=== PATIENT | female | born 2000 | race African-American/Black ===

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

== ENCOUNTER 2020-06-04 14:29 | Emergency (ER) | payer MEDICAID ==
--- NOTE | 2020-06-04 15:54 | ER Document Report ---
ED Medical Screen (RME) - General Chief Complaint: Vaginal Bleeding Stated Complaint: VAGINAL BLEEDING Time Seen by Provider: 06/04/20 15:50 Primary Care Provider: INDU MCCLURE MD [Primary Care Provider] - Follow up as needed Mode of Arrival: Ambulatory Information source: Patient Notes: HPI; 19-year-old female presents to the emergency room complaining of vaginal bleeding with clots for the past 3 days. Unsure if she is . LMP 05/03. No previous pregnancies. Sexually active no use of control. Negative home test 3 weeks ago. PE: Alert and oriented x3. Mild distress noted. Lungs: Clear to auscultation without rales, rhonchi, wheezes. Heart: Regular rate rhythm without murmurs, rubs, gallops. Unable to do full exam in triage. I have greeted and performed a rapid initial assessment of this patient. A comprehensive ED assessment and evaluation of the patient, analysis of test results and completion of the medical decision making process will be conducted by additional ED providers. I have specifically instructed the patient or family members with the patient to immediately return to any nursing staff should anything change in the patient's condition or with their chief complaint. TRAVEL OUTSIDE OF THE [place] IN LAST 30 DAYS: No - Related Data Allergies/Adverse Reactions: No Known Allergies Allergy (Verified 06/04/20 15:39) Home Medications: denies Past Medical History - Social History Chew tobacco use (# tins/day): No Frequency of alcohol use: None Drug Abuse: Marijuana Renal/ Medical History: Denies: Hx Peritoneal Dialysis Psychiatric Medical History: Reports: Hx Attention Deficit Hyperactivity Disorder Past Surgical History: Reports: Hx Oral Surgery - wisdom teeth - Immunizations Immunizations up to date: Yes Hx Diphtheria, Pertussis, Tetanus Vaccination: Yes Physical Exam - Vital signs Vitals: Temp Pulse Resp BP Pulse Ox 98.2 F 95 H 20 147/62 H 100 06/04/20 14:35 06/04/20 14:35 06/04/20 14:35 06/04/20 14:35 06/04/20 14:35 Course - Vital Signs Vital signs: Temp Pulse Resp BP Pulse Ox 98.2 F 95 H 20 147/62 H 100 06/04/20 14:35 06/04/20 14:35 06/04/20 14:35 06/04/20 14:35 06/04/20 14:35 Doctor's Discharge - Discharge Referrals: INDU MCCLURE MD [Primary Care Provider] - Follow up as needed
[2020-06-04 16:52] LABS: APPEARANCE,URINE CLEAR; BILIRUBIN,URINE NEGATIVE (NEGATIVE); COLOR,URINE YELLOW; GLUCOSE, URINE NEGATIVE (NEGATIVE); KETONES,URINE NEGATIVE (NEGATIVE); LEUKOCYTE ESTERASE,URINE NEGATIVE (NEGATIVE); NITRITE,URINE NEGATIVE (NEGATIVE); PROTEIN,URINE 30 mg/dL (NEGATIVE); UROBILINOGEN,URINE NEGATIVE mg/dL (<2.0)
[2020-06-04 17:11] LABS: ABSOLUTE EOSINOPHILS # (AUTO) 0.1 10^3/uL (0.0-0.6); ABSOLUTE MONOCYTES (AUTO) 0.2 10^3/uL (0.1-1.4); ABSOLUTE NEUT (AUTO) 2.1 10^3/uL (1.7-8.2); BASOPHILS % (AUTO) 0.5 % (0-2); EOSINOPHILS % (AUTO) 2.8 % (0-6); HEMATOCRIT 31.7 % (36.0-47.0); HEMOGLOBIN 10.4 g/dL (12.0-15.5); LYMPHOCYTES % (AUTO) 29.2 % (13-45); MEAN CORPUSCULAR HGB CONC 32.7 g/dL (32.0-36.0); MEAN CORPUSCULAR VOLUME 83 fl (80-97); MONOCYTES % (AUTO) 5.9 % (3-13); PLATELET COUNT 440 10^3/uL (150-450); RED BLOOD COUNT 3.84 10^6/uL (3.72-5.28); RED CELL DISTRIBUTION WIDTH 22.2 % (11.5-14.0); SEGMENTED NEUTROPHILS % (AUTO) 61.6 % (42-78); TOTAL CELLS COUNTED % (AUTO) 100 %; WHITE BLOOD COUNT 3.5 10^3/uL (4.0-10.5)
[2020-06-04 17:31] LABS: ALBUMIN 4.5 g/dL (3.7-5.6); ALKALINE PHOSPHATASE 96 U/L (50-135); ASPARTATE AMINO TRANSFERASE 36 U/L (5-30); BILIRUBIN,TOTAL 0.3 mg/dL (0.2-1.3); BLOOD UREA NITROGEN 12 mg/dL (7-20); CALCIUM 9.4 mg/dL (8.4-10.2); GLUCOSE 83 mg/dL (75-110); POTASSIUM 3.9 mmol/L (3.6-5.0); TOTAL PROTEIN 9.4 g/dL (6.3-8.2)
[2020-06-04 17:36] LABS: ANION GAP 5 (5-19); CARBON DIOXIDE 28 mmol/L (22-30); CHLORIDE 105 mmol/L (98-107)
--- NOTE | 2020-06-04 19:32 | RADIOLOGY REPORT (SQ) ---
EXAM DESCRIPTION: U/S NON OB PEL TV W/DOPPLER IMAGES COMPLETED DATE/TIME: 06/04/2020 7:10 pm REASON FOR STUDY: vaginal bleeding COMPARISON: None. TECHNIQUE: Dynamic and static grayscale images acquired of the pelvis via transvaginal approach and recorded on PACS. Additional selected color Doppler and spectral images recorded. LIMITATIONS: None. FINDINGS: UTERUS: Contour normal. No mass. ENDOMETRIAL STRIPE: No focal or generalized thickening. No masses. CERVIX: 2.2 cm. RIGHT OVARY AND DOPPLER: Normal size. No worrisome masses. Multiple follicles arranged peripherally. Normal arterial vascular flow without evidence for torsion. LEFT OVARY AND DOPPLER: Normal size. No worrisome masses. Multiple follicles arranged peripherally. Normal arterial vascular flow without evidence for torsion. FREE FLUID: There is some free fluid in the posterior cul-de-sac. OTHER: No other significant finding. MEASUREMENTS: UTERUS: 8.1 x 3.5 x 4.1 cm. ENDOMETRIAL STRIPE: 5 mm. RIGHT OVARY: 4.6 x 3.1 x 2.5 cm. LEFT OVARY: 4.1 x 2.3 x 2 cm. IMPRESSION: The appearance of the ovaries raises the concern for polycystic ovarian syndrome. TECHNICAL DOCUMENTATION: JOB ID: [id number] [employer]- All Rights Reserved Rev-04/02 Reading location - IP/workstation name: [email or web address]
[2020-06-04 21:05] VITALS: BP 115/64
--- NOTE | 2020-06-06 13:24 | ER Document Report ---
Entered by CIRO SALAZAR SCRIBE 06/04/202012 Acting as scribe for:KACY EDDY DO ED GI/ - General Chief Complaint: Vaginal Bleeding Stated Complaint: VAGINAL BLEEDING Time Seen by Provider: 06/04/20 15:50 Primary Care Provider: INDU MCCLURE MD [Primary Care Provider] - Follow up as needed Mode of Arrival: Ambulatory Information source: Patient Notes: This 19 year old female patient with no significant past medical history pres ents to the ED today with complaints of vaginal bleeding with clots for the past x3 days. Patient states that her last menstrual period was normal on 05/03/2020. Patient admits to being sexually active and is unsure if she is . She also noted some abdominal cramping earlier, but denies any at this time. Denies burning with urination or prior pregnancies. [place] [facility] [place]VEL OUTSIDE OF THE [place] IN LAST 30 DAYS: No - Related Data Allergies/Adverse Reactions: No Known Allergies Allergy (Verified 06/04/20 15:39) Home Medications: denies Past Medical History - General Information source: Patient - Social History Smoking Status: Current Some Day Smoker Cigarette use (# per day): Yes Chew tobacco use (# tins/day): No Smoking Education Provided: No Frequency of alcohol use: None Drug Abuse: Marijuana Family History: Reviewed & Not Pertinent Patient has homicidal ideation: No Psychiatric Medical History: Reports: Hx Attention Deficit Hyperactivity Disorder Past Surgical History: Reports: Hx Oral Surgery - wisdom teeth - Immunizations Immunizations up to date: Yes Hx Diphtheria, Pertussis, Tetanus Vaccination: Yes Review of Systems - Review of Systems Constitutional: No symptoms reported EENT: No symptoms reported Cardiovascular: No symptoms reported Respiratory: No symptoms reported Gastrointestinal: See HPI, Abdominal pain Genitourinary: See HPI. denies: Burning Female Genitourinary: See HPI, Last menstrual period - 05/03/2020, Vaginal bleeding Musculoskeletal: No symptoms reported Skin: No symptoms reported Hematologic/Lymphatic: No symptoms reported Neurological/Psychological: No symptoms reported -: Yes All other systems reviewed and negative Physical Exam - Vital signs Vitals: Temp Pulse Resp BP Pulse Ox 98.2 F 95 H 20 147/62 H 100 06/04/20 14:35 06/04/20 14:35 06/04/20 14:35 06/04/20 14:35 06/04/20 14:35 - General General appearance: Appears well, Alert In distress: None - HEENT Head: Normocephalic, Atraumatic Eyes: Normal Extraocular movements intact: Yes Pupils: PERRL - Respiratory Respiratory status: No respiratory distress Chest status: Nontender Breath sounds: Normal Chest palpation: Normal - Cardiovascular Rhythm: Regular Heart sounds: Normal auscultation Murmur: No Friction rub: No Gallop: None auscultated - Abdominal Inspection: Obese Distension: No distension Bowel sounds: Normal Tenderness: Nontender - Abdomen soft Organomegaly: No organomegaly - Back Back: Normal, Nontender - Extremities General upper extremity: Normal inspection General lower extremity: Normal inspection. No: Edema - Neurological Neuro grossly intact: Yes Orientation: AAOx4 Arlyn Coma Scale Eye Opening: Spontaneous Tie Siding Coma Scale Verbal: Oriented Arlyn Coma Scale Motor: Obeys Commands Tie Siding Coma Scale Total: 15 - Psychological Associated symptoms: Normal affect, Normal mood - Skin Skin Temperature: Warm Skin Moisture: Dry Skin Color: Normal Course - Vital Signs Vital signs: Temp Pulse Resp BP Pulse Ox 98.2 F 95 H 20 147/62 H 100 06/04/20 14:35 06/04/20 14:35 06/04/20 14:35 06/04/20 14:35 06/04/20 14:35 - Laboratory Result Diagrams: 06/04/20 16:45 06/04/20 16:45 Laboratory results interpreted by me: 06/04/20 06/04/20 06/04/20 16:15 16:45 16:45 WBC 3.5 L Hgb 10.4 L Hct 31.7 L RDW 22.2 H AST 36 H Total Protein 9.4 H Urine Protein 30 H Urine Blood MODERATE H Discharge - Discharge Clinical Impression: Vaginal bleeding Condition: Stable Disposition: HOME, SELF-CARE Instructions: Ovarian Cyst ([facility]), Anemia ([facility]) Additional Instructions: See your doctor or the Electric Transfer Operator in follow up. Take a vitamin with iron. Please return here for abdominal or pelvic pain or other problems or other concerns. Referrals: INDU MCCLURE MD [Primary Care Provider] - Follow up as needed FREDO ALLEN MD [ACTIVE STAFF] - Follow up as needed I personally performed the services described in the documentation, reviewed and edited the documentation which was dictated to the scribe in my presence, and it accurately records my words and actions.
== END 2020-06-04 21:06 | disposition home or self-care (01) ==
LOC: ER 14:29
DX: N93.8 Other specified abnormal uterine and vaginal bleeding (principal); R10.9 Unspecified abdominal pain; F17.210 Nicotine dependence, cigarettes, uncomplicated
CPT/HCPCS: 36415; 76830; 80053; 81001; 84703; 85025; 93976; 99284

== ENCOUNTER 2020-07-11 07:06 | Emergency (ER) | payer MEDICAID ==
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
[2020-07-11] MEDS ORDERED: IBUPROFEN 800 MG TABLET PO ONE (07:46)
[2020-07-11] MEDS ORDERED: ACETAMINOPHEN 325 MG TABLET PO ONE (07:52)
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
[2020-07-11 09:45] VITALS: BP 112/68
== END 2020-07-11 09:45 | disposition home or self-care (01) ==
LOC: ER 07:06
DX: S09.93XA Unspecified injury of face, initial encounter (principal); T14.8XXA Other injury of unspecified body region, initial encounter; H11.32 Conjunctival hemorrhage, left eye; R51 Headache; Y00.XXXA Assault by blunt object, initial encounter; Z88.8 Allergy status to other drugs, medicaments and biological substances
CPT/HCPCS: 99285; 70450; 70486; 72125; J3490

== ENCOUNTER 2020-12-03 19:23 | Emergency (ER) | payer MEDICAID ==
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
[2020-12-04] MEDS ORDERED: CEFTRIAXONE INJ 250 MG VIAL IM ONE
[2020-12-04] MEDS ORDERED: AZITHROMYCIN 250 MG TABLET PO ONE
[2020-12-04 00:03] VITALS: BP 136/82
[2020-12-04 00:05] LABS: APPEARANCE,URINE SLIGHTLY-CLOUDY; BILIRUBIN,URINE NEGATIVE (NEGATIVE); COLOR,URINE YELLOW; GLUCOSE, URINE NEGATIVE (NEGATIVE); KETONES,URINE 20 mg/dL (NEGATIVE); LEUKOCYTE ESTERASE,URINE NEGATIVE (NEGATIVE); NITRITE,URINE NEGATIVE (NEGATIVE); PROTEIN,URINE 100 mg/dL (NEGATIVE); URINE SPECIFIC GRAVITY 1.028; UROBILINOGEN,URINE NEGATIVE mg/dL (<2.0)
[2020-12-04] MEDS ORDERED: LIDOCAINE 1% INJ-PF (10 MG/ML) 30 ML SDV ONE (00:06)
[2020-12-04 00:10] LABS: T.VAGINALIS (WET MOUNT) NO TRICHOMONAS SEEN; WBCS (WET MOUNT) 1+ WBCS SEEN; YEAST (WET MOUNT) NO YEAST SEEN
[2020-12-04 00:11] LABS: BACTERIA (WET MOUNT) 3+ BACTERIA SEEN; RBCS (WET MOUNT) 3+ RBCS SEEN
[2020-12-04 00:18] LABS: ABSOLUTE LYMPHOCYTES (AUTO) 1.1 10^3/uL (0.5-4.7); ABSOLUTE MONOCYTES (AUTO) 0.2 10^3/uL (0.1-1.4); ABSOLUTE NEUT (AUTO) 3.3 10^3/uL (1.7-8.2); BASOPHILS % (AUTO) 0.8 % (0-2); EOSINOPHILS % (AUTO) 0.4 % (0-6); HEMATOCRIT 32.1 % (36.0-47.0); HEMOGLOBIN 10.3 g/dL (12.0-15.5); LYMPHOCYTES % (AUTO) 24.7 % (13-45); MEAN CORPUSCULAR HEMOGLOBIN 24.4 pg (27.0-33.4); MEAN CORPUSCULAR HGB CONC 32.1 g/dL (32.0-36.0); MEAN CORPUSCULAR VOLUME 76 fl (80-97); MONOCYTES % (AUTO) 3.6 % (3-13); PLATELET COUNT 456 10^3/uL (150-450); RED BLOOD COUNT 4.22 10^6/uL (3.72-5.28); RED CELL DISTRIBUTION WIDTH 20.9 % (11.5-14.0); SEGMENTED NEUTROPHILS % (AUTO) 70.5 % (42-78); TOTAL CELLS COUNTED % (AUTO) 100 %; WHITE BLOOD COUNT 4.6 10^3/uL (4.0-10.5)
[2020-12-04 00:26] LABS: ALBUMIN 4.5 g/dL (3.5-5.0); ALKALINE PHOSPHATASE 96 U/L (38-126); ANION GAP 9 (5-19); ASPARTATE AMINO TRANSFERASE 29 U/L (14-36); BILIRUBIN,DIRECT 0.3 mg/dL (0.0-0.4); BILIRUBIN,TOTAL 0.4 mg/dL (0.2-1.3); BLOOD UREA NITROGEN 12 mg/dL (7-20); CALCIUM 9.6 mg/dL (8.4-10.2); CARBON DIOXIDE 26 mmol/L (22-30); CHLORIDE 107 mmol/L (98-107); GLUCOSE 112 mg/dL (75-110); POTASSIUM 3.7 mmol/L (3.6-5.0); TOTAL PROTEIN 9.8 g/dL (6.3-8.2)
[2020-12-05 05:38] LABS: HEPATITS B SURFACE ANTIGEN Negative (Negative)
[2020-12-05 07:33] LABS: HEPATITIS C VIRUS ANTIBODY <0.1 s/co ratio (0.0-0.9)
== END 2020-12-04 00:42 | disposition home or self-care (01) ==
LOC: ER 19:23 → EEVIPCON 19:23 → ER 12-04 00:42
DX: T76.21XA Adult sexual abuse, suspected, initial encounter (principal); R41.3 Other amnesia
CPT/HCPCS: 99285; 96372; 36415; 87210; 85025; 81025; 86592; 80053; 81001; 86701; 80074; Q0144; J3490; J0696